=== PATIENT | male | born 1960 | race Caucasian/White ===

== ENCOUNTER 2017-05-15 08:33 | Day surgery (SDC) | payer OTHER ==
[~2017-05-15] VITALS: Ht 166.4 cm; Wt 107.0 kg
[~2017-05-15 08:33] MED LIST: ADVAIR 250/501 DISK IH; ALTACE10 MG PO; ALTACE5 MG PO; AMLOD-VALSA-HC1 EAC4 PO; ASPIRIN81 M2 PO; ATORVASTATIN CA20 MG PO; AUGMENTIN875 MG PO; CARDURA2 M1 PO; CIPRODEX OTIC7.5 ML LEFT EAR; CLONIDINE HCL0.1 MG PO; CLONIDINE HCL0.3 MG PO; CYMBALTA20 MG PO; DAILY VALUE1 EACH PO; DICLOFENAC POTA50 MG PO; DIFLUCAN100 MG PO; DULCOLAX5 MG PO; DULOXETINE HCL20 MG PO; FLEXERIL10 MG PO; GABAPENTIN300 MG PO; GLUCOPHAGE1000 MG PO; HYDRALAZINE HCL10 MG PO; HYDRALAZINE HCL25 MG PO; HYDROCHLOROTHIA25 MG PO; KADIAN30 MG PO; LANTUS 10100 UNITS/ SC; LASIX40 MG PO; LIDOCAINE-HYDROC7 GM PR; LIPITOR20 MG PO; NEURONTIN300 MG PO; NORCO 7.5/321 TABLET PO; NORVASC10 MG PO; NORVASC5 MG PO; NOVOLIN 70100 UNIT/1 SQ; NOVOLIN,HU100 UNITS/ SC; NOVOLOG 10100 UNITS/ SC; OMEGA 3-6-9 CO1 EACH PO; OMEGA-31000 M1 PO; OXAPROZIN600 MG PO; OXYCODONE HCL15 MG PO; PANTOPRAZOLE SO40 MG PO; PROAIR HFA8.5 GM IH; PROTONIX40 MG PO; STOOL SOFTENER100 MG PO; TOPROL XL100 MG PO; TRULICITY0.75 MG/0. SC; ULTRAM50 MG PO; VIBRAMYCIN100 MG PO; VITAMIN B-125000 MC1 PO; VITAMIN B-6100 MG PO; VITAMIN B12 PO; ZEMAIRA IV; ZOCOR40 MG PO; ZOFRAN ODT4 MG PO
== END 2017-05-15 14:01 | disposition short-term general hospital (02) ==
LOC: CATH 08:33 → ENRESERV 11:24 → CANRESERV 11:24 → 2SOUTH 11:26
PROVIDERS: Internal Medicine Cardiovascular Disease
DX: I25.119 Atherosclerotic heart disease of native coronary artery with unspecified angina pectoris (principal); E78.5 Hyperlipidemia, unspecified; I11.9 Hypertensive heart disease without heart failure; E11.51 Type 2 diabetes mellitus with diabetic peripheral angiopathy without gangrene; J44.9 Chronic obstructive pulmonary disease, unspecified; Z79.4 Long term (current) use of insulin; Z79.82 Long term (current) use of aspirin; F17.210 Nicotine dependence, cigarettes, uncomplicated
CPT/HCPCS: 82948; C1769; C1887; G0378; J1644; J2250; J3010

== ENCOUNTER 2017-06-23 13:23 | Inpatient (IN) | payer OTHER ==
[~2017-06-23] VITALS: Ht 165.1 cm; Wt 107.4 kg
[~2017-06-23 13:23] MED LIST changes: -ATORVASTATIN CA20 MG PO; +COLACE100 MG PO; -GABAPENTIN300 MG PO; +LIPITOR40 MG PO; -STOOL SOFTENER100 MG PO; -VITAMIN B-6100 MG PO; +VITAMIN B-650 M1 PO
[2017-06-23 14:45] LABS: HEMATOCRIT 29.2 % (38.0-50.0); HEMOGLOBIN 9.5 G/DL (12.5-16.6); MCH 30.2 PG (29.0-34.0); MCHC 32.5 G/DL (30.0-36.0); MCV 92.7 FL (86-99); PLATELET COUNT 239 K/uL (156-360); RBC DIS.WIDTH-CV 14.4 % (11.8-14.6); RBC DIS.WIDTH-SD 48.8 % (39-53); RED BLOOD COUNT 3.15 M/uL (4.00-5.50); WHITE BLOOD COUNT 7.4 K/uL (4.1-10.2)
[2017-06-23 14:59] LABS: CHLORIDE 99 mEq/L (99-109); POTASSIUM 4.2 mEq/L (3.7-5.4); SODIUM 135 mEq/L (136-147)
[2017-06-23 15:03] LABS: GLUCOSE 125 mg/dL (70-99)
[2017-06-23 15:04] LABS: GFR ESTIMATE (CALCULATED) > 59 mL/min/ (58.99-99999)
[2017-06-23 15:05] LABS: UREA NITROGEN (BUN) 17 mg/dL (9-23)
[2017-06-23 15:07] LABS: TROP-I INTERPRETATION NEGATIVE; TROPONIN-I < 0.01 ng/mL (0.0-0.30)
[2017-06-23 17:20] LABS: TYPE OF FLUID PLEURAL
[2017-06-23 17:45] LABS: BODY FLUID AMYLASE 25 U/L
[2017-06-23 17:50] LABS: BODY FLUID GLUCOSE 122 MG/DL; BODY FLUID LDH 208 IU/L
[2017-06-23 18:07] LABS: APPEARANCE BLOODY; BODY FLUID EOSINOPHILS 0 % (0-25); BODY FLUID RBC'S 240000 /MM^3 (0-100); BODY FLUID WBC'S 2720 /MM^3 (0-500); MONONUCLEAR WBC'S 42 %; POLYNUCLEAR WBC'S 58 % (0-25)
[2017-06-23] MEDS ORDERED: K-DUR20 MEQ PO (18:23)
[2017-06-23] MEDS ORDERED: VITAMIN D2000 UNI1 PO (18:23)
[2017-06-23] MEDS ORDERED: LIPITOR40 MG PO (18:25)
[2017-06-23] MEDS ORDERED: CORDARONE200 MG PO (18:25)
[2017-06-23] MEDS ORDERED: PRINIVIL10 MG PO (18:26)
[2017-06-23] MEDS ORDERED: PLAVIX75 MG PO (18:26)
[2017-06-23] MEDS ORDERED: LOPRESSOR50 MG PO (18:26)
[2017-06-23] MEDS ORDERED: THERAPEUTIC M PO (18:27)
[2017-06-23 20:44] VITALS: BP 156/69
[2017-06-23 21:32] LABS: TROP-I INTERPRETATION NEGATIVE; TROPONIN-I < 0.01 ng/mL (0.0-0.30)
[2017-06-23 21:44] LABS: APPEARANCE SL.HAZY ((CLEAR)); BILIRUBIN NEGATIVE; BLOOD NEGATIVE; COLOR YELLOW ((YELLOW)); GLUCOSE (STRIP) NEGATIVE; KETONES NEGATIVE; LEUKOCYTES NEGATIVE; NITRITE NEGATIVE; PROTEIN (STRIP) 30; SPECIFIC GRAVITY 1.014 (1.000-1.030)
[2017-06-23 21:53] LABS: BACTERIA NONE SEEN /HPF; EPITHELIAL CELLS RARE /HPF; HYALINE CASTS 0-5 /LPF; MUCUS 2+ /LPF; RED BLOOD CELLS 20-30 /HPF (0-5); UCUL ADDED? NO; WHITE BLOOD CELLS NONE SEEN /HPF (0-5)
[2017-06-23 23:33] VITALS: BP 148/69
[2017-06-24 02:41] LABS: HEMATOCRIT 27.4 % (38.0-50.0); HEMOGLOBIN 9.1 G/DL (12.5-16.6); MCH 30.1 PG (29.0-34.0); MCHC 33.2 G/DL (30.0-36.0); MCV 90.7 FL (86-99); PLATELET COUNT 244 K/uL (156-360); RBC DIS.WIDTH-CV 14.3 % (11.8-14.6); RBC DIS.WIDTH-SD 47.7 % (39-53); RED BLOOD COUNT 3.02 M/uL (4.00-5.50)
[2017-06-24 02:56] LABS: CHLORIDE 99 mEq/L (99-109); POTASSIUM 3.9 mEq/L (3.7-5.4); SODIUM 139 mEq/L (136-147)
[2017-06-24 02:57] LABS: GLUCOSE 134 mg/dL (70-99)
[2017-06-24 03:01] LABS: GFR ESTIMATE (CALCULATED) > 59 mL/min/ (58.99-99999)
[2017-06-24 03:02] LABS: TROP-I INTERPRETATION NEGATIVE; TROPONIN-I < 0.01 ng/mL (0.0-0.30); UREA NITROGEN (BUN) 17 mg/dL (9-23)
[2017-06-24 04:05] VITALS: BP 158/68
[2017-06-24 07:59] VITALS: BP 134/63
[2017-06-24 11:09] VITALS: BP 97/51
[2017-06-24 16:00] VITALS: BP 117/58
[2017-06-24 19:39] VITALS: BP 133/60
[2017-06-24 23:50] VITALS: BP 133/63
[2017-06-25] VITALS (7 sets, daily range): BP systolic 98–146; BP diastolic 50–66
[2017-06-25 06:56] LABS: BASOPHIL (%) 1.1 % (0-1); BASOPHIL COUNT 0.1 K/uL (0-0.1); EOSINOPHIL COUNT 0.2 K/uL (0-0.3); HEMATOCRIT 25.8 % (38.0-50.0); HEMOGLOBIN 8.4 G/DL (12.5-16.6); IMMATURE GRANULOCYTE (%) 0.5 % (0.0-0.7); LYMPHOCYTE COUNT 1.5 K/uL (1.0-2.8); MCH 30.1 PG (29.0-34.0); MCHC 32.6 G/DL (30.0-36.0); MCV 92.5 FL (86-99); MONOCYTE (%) 12.9 % (3-12); MONOCYTE COUNT 0.9 K/uL (0-0.8); NEUTROPHIL (%) 60.5 % (45-76); PLATELET COUNT 244 K/uL (156-360); RBC DIS.WIDTH-CV 14.6 % (11.8-14.6); RBC DIS.WIDTH-SD 49.1 % (39-53); RED BLOOD COUNT 2.79 M/uL (4.00-5.50); WHITE BLOOD COUNT 6.6 K/uL (4.1-10.2)
[2017-06-25 07:25] LABS: CHLORIDE 97 MEQ/L (99-109); CREATININE 1.2 MG/DL (0.6-1.3); GFR ESTIMATE (CALCULATED) > 59 mL/min/ (58.99-99999); SODIUM 138 MEQ/L (136-147); UREA NITROGEN (BUN) 24 mg/dL (9-23)
[2017-06-25 07:29] LABS: GLUCOSE 56 mg/dL (70-99)
[2017-06-26 03:57] VITALS: BP 144/67
[2017-06-26 06:12] LABS: BASOPHIL (%) 0.8 % (0-1); BASOPHIL COUNT 0.1 K/uL (0-0.1); EOSINOPHIL (%) 2.4 % (0-5); EOSINOPHIL COUNT 0.2 K/uL (0-0.3); HEMATOCRIT 25.7 % (38.0-50.0); HEMOGLOBIN 8.3 G/DL (12.5-16.6); IMMATURE GRANULOCYTE (%) 0.4 % (0.0-0.7); LYMPHOCYTE (%) 18.6 % (15-42); LYMPHOCYTE COUNT 1.5 K/uL (1.0-2.8); MCH 29.4 PG (29.0-34.0); MCHC 32.3 G/DL (30.0-36.0); MCV 91.1 FL (86-99); MONOCYTE (%) 11.4 % (3-12); MONOCYTE COUNT 0.9 K/uL (0-0.8); NEUTROPHIL (%) 66.4 % (45-76); NEUTROPHIL COUNT 5.2 K/uL (1.8-6.4); PLATELET COUNT 263 K/uL (156-360); RBC DIS.WIDTH-CV 14.5 % (11.8-14.6); RBC DIS.WIDTH-SD 48.3 % (39-53); RED BLOOD COUNT 2.82 M/uL (4.00-5.50); WHITE BLOOD COUNT 7.9 K/uL (4.1-10.2)
[2017-06-26 06:33] LABS: CHLORIDE 96 MEQ/L (99-109); CREATININE 1.2 MG/DL (0.6-1.3); GFR ESTIMATE (CALCULATED) > 59 mL/min/ (58.99-99999); GLUCOSE 59 mg/dL (70-99); POTASSIUM 4.1 MEQ/L (3.7-5.4); SODIUM 138 MEQ/L (136-147); UREA NITROGEN (BUN) 24 mg/dL (9-23)
[2017-06-26 07:00] VITALS: BP 104/53
[2017-06-26 11:19] VITALS: BP 118/64
[2017-06-26 15:12] VITALS: BP 104/56
[2017-06-26 20:00] VITALS: BP 128/61
[2017-06-27] VITALS (7 sets, daily range): BP systolic 110–155; BP diastolic 54–72
[2017-06-27 06:21] LABS: HEMATOCRIT 25.8 % (38.0-50.0); HEMOGLOBIN 8.6 G/DL (12.5-16.6); MCH 30.2 PG (29.0-34.0); MCHC 33.3 G/DL (30.0-36.0); MCV 90.5 FL (86-99); PLATELET COUNT 247 K/uL (156-360); RBC DIS.WIDTH-CV 14.4 % (11.8-14.6); RBC DIS.WIDTH-SD 47.5 % (39-53); RED BLOOD COUNT 2.85 M/uL (4.00-5.50); WHITE BLOOD COUNT 7.1 K/uL (4.1-10.2)
[2017-06-27 06:48] LABS: CHLORIDE 96 MEQ/L (99-109); GFR ESTIMATE (CALCULATED) > 59 mL/min/ (58.99-99999); POTASSIUM 3.9 MEQ/L (3.7-5.4); SODIUM 134 MEQ/L (136-147); UREA NITROGEN (BUN) 23 mg/dL (9-23)
[2017-06-27 06:51] LABS: GLUCOSE 172 mg/dL (70-99)
[2017-06-27 07:00] LABS: ANISOCYTOSIS 1+; BASOPHIL (%) 0.7 % (0-1); BASOPHIL COUNT 0.1 K/uL (0-0.1); EOSINOPHIL (%) 2.3 % (0-5); EOSINOPHIL COUNT 0.2 K/uL (0-0.3); IMMATURE GRANULOCYTE (%) 0.3 % (0.0-0.7); LYMPHOCYTE COUNT 1.3 K/uL (1.0-2.8); MICROCYTOSIS 1+; MONOCYTE (%) 11.5 % (3-12); MONOCYTE COUNT 0.8 K/uL (0-0.8); NEUTROPHIL (%) 67.2 % (45-76); NEUTROPHIL COUNT 4.8 K/uL (1.8-6.4); POLYCHROMASIA 1+
[2017-06-28 04:08] VITALS: BP 133/60
[2017-06-28 06:08] LABS: BASOPHIL (%) 1.1 % (0-1); BASOPHIL COUNT 0.1 K/uL (0-0.1); EOSINOPHIL (%) 2.7 % (0-5); EOSINOPHIL COUNT 0.2 K/uL (0-0.3); HEMATOCRIT 26.7 % (38.0-50.0); HEMOGLOBIN 8.6 G/DL (12.5-16.6); IMMATURE GRANULOCYTE (%) 0.5 % (0.0-0.7); LYMPHOCYTE (%) 19.3 % (15-42); LYMPHOCYTE COUNT 1.2 K/uL (1.0-2.8); MCH 29.1 PG (29.0-34.0); MCHC 32.2 G/DL (30.0-36.0); MCV 90.2 FL (86-99); MONOCYTE (%) 10.5 % (3-12); MONOCYTE COUNT 0.7 K/uL (0-0.8); NEUTROPHIL (%) 65.9 % (45-76); NEUTROPHIL COUNT 4.2 K/uL (1.8-6.4); PLATELET COUNT 261 K/uL (156-360); RBC DIS.WIDTH-CV 14.3 % (11.8-14.6); RED BLOOD COUNT 2.96 M/uL (4.00-5.50); WHITE BLOOD COUNT 6.4 K/uL (4.1-10.2)
[2017-06-28 06:34] LABS: ALBUMIN 2.9 G/DL (3.2-4.8); ALKALINE PHOSPHATASE 80 IU/L (3-129); ALT (GPT) 15 IU/L (3-49); AST (GOT) 12 IU/L (2-34); CHLORIDE 97 MEQ/L (99-109); GFR ESTIMATE (CALCULATED) > 59 mL/min/ (58.99-99999); GLUCOSE 201 mg/dL (70-99); LACTATE DEHYDROGENASE 149 IU/L (20-246); POTASSIUM 4.5 MEQ/L (3.7-5.4); SODIUM 134 MEQ/L (136-147); TOTAL PROTEIN 5.7 G/DL (6.4-8.3); UREA NITROGEN (BUN) 22 mg/dL (9-23)
[2017-06-28 06:35] LABS: TOTAL BILIRUBIN 0.3 MG/DL (0.0-1.0)
[2017-06-28 07:13] LABS: IRON 36 MCG/DL (35-150); TRANSFERRIN (TIBC) 196.1 mg/dL (215-380); TRANSFERRIN SATUR. 18 % (20-55)
[2017-06-28 07:42] VITALS: BP 128/60
[2017-06-28 08:21] LABS: FERRITIN 99 NG/ML (22-322)
[2017-06-28 08:36] LABS: THYROTROPIN (TSH) 5.1 MIU/L (0.4-5.5)
[2017-06-28 09:02] LABS: FOLIC ACID (FOLATE) > 22.0 NG/ML (5.0-22.0)
[2017-06-28 11:31] LABS: INTER. NORMALIZED RATIO 1.3
[2017-06-28 11:34] LABS: PTT 33.7 SEC (25-37)
[2017-06-28 20:05] VITALS: BP 134/63
[2017-06-28 21:15] LABS: STOOL OCCULT BLD 1ST SPECIMEN NEGATIVE
[2017-06-29] VITALS: BP 161/70
[2017-06-29 04:00] VITALS: BP 143/63
[2017-06-29 06:25] LABS: BASOPHIL (%) 0.9 % (0-1); BASOPHIL COUNT 0.1 K/uL (0-0.1); EOSINOPHIL (%) 2.4 % (0-5); EOSINOPHIL COUNT 0.2 K/uL (0-0.3); HEMATOCRIT 27.1 % (38.0-50.0); HEMOGLOBIN 8.8 G/DL (12.5-16.6); IMMATURE GRANULOCYTE (%) 0.8 % (0.0-0.7); LYMPHOCYTE (%) 18.7 % (15-42); LYMPHOCYTE COUNT 1.5 K/uL (1.0-2.8); MCH 29.2 PG (29.0-34.0); MCHC 32.5 G/DL (30.0-36.0); MONOCYTE COUNT 0.9 K/uL (0-0.8); NEUTROPHIL (%) 66.2 % (45-76); NEUTROPHIL COUNT 5.2 K/uL (1.8-6.4); PLATELET COUNT 270 K/uL (156-360); RBC DIS.WIDTH-CV 14.4 % (11.8-14.6); RBC DIS.WIDTH-SD 46.6 % (39-53); RED BLOOD COUNT 3.01 M/uL (4.00-5.50); WHITE BLOOD COUNT 7.8 K/uL (4.1-10.2)
[2017-06-29 06:48] LABS: ALBUMIN 2.8 G/DL (3.2-4.8); ALKALINE PHOSPHATASE 76 IU/L (3-129); ALT (GPT) 15 IU/L (3-49); AST (GOT) 13 IU/L (2-34); CHLORIDE 96 MEQ/L (99-109); GFR ESTIMATE (CALCULATED) > 59 mL/min/ (58.99-99999); GLUCOSE 232 mg/dL (70-99); POTASSIUM 4.8 MEQ/L (3.7-5.4); SODIUM 132 MEQ/L (136-147); TOTAL BILIRUBIN 0.3 MG/DL (0.0-1.0); TOTAL PROTEIN 5.6 G/DL (6.4-8.3); UREA NITROGEN (BUN) 20 mg/dL (9-23)
[2017-06-29 16:11] VITALS: BP 116/68
[2017-06-29 19:57] VITALS: BP 119/59
[2017-06-30] VITALS: BP 131/60
[2017-06-30 04:00] VITALS: BP 122/58
[2017-06-30 06:31] LABS: BASOPHIL (%) 1.2 % (0-1); BASOPHIL COUNT 0.1 K/uL (0-0.1); EOSINOPHIL (%) 2.6 % (0-5); EOSINOPHIL COUNT 0.2 K/uL (0-0.3); HEMATOCRIT 27.2 % (38.0-50.0); HEMOGLOBIN 8.9 G/DL (12.5-16.6); IMMATURE GRANULOCYTE (%) 1.2 % (0.0-0.7); LYMPHOCYTE (%) 16.7 % (15-42); LYMPHOCYTE COUNT 1.3 K/uL (1.0-2.8); MCH 29.8 PG (29.0-34.0); MCHC 32.7 G/DL (30.0-36.0); MONOCYTE (%) 10.8 % (3-12); MONOCYTE COUNT 0.8 K/uL (0-0.8); NEUTROPHIL (%) 67.5 % (45-76); NEUTROPHIL COUNT 5.2 K/uL (1.8-6.4); PLATELET COUNT 242 K/uL (156-360); RBC DIS.WIDTH-CV 14.6 % (11.8-14.6); RBC DIS.WIDTH-SD 47.8 % (39-53); RED BLOOD COUNT 2.99 M/uL (4.00-5.50); WHITE BLOOD COUNT 7.7 K/uL (4.1-10.2)
[2017-06-30 06:57] LABS: ALBUMIN 2.8 G/DL (3.2-4.8); ALKALINE PHOSPHATASE 72 IU/L (3-129); ALT (GPT) 16 IU/L (3-49); AST (GOT) 14 IU/L (2-34); CHLORIDE 95 MEQ/L (99-109); GFR ESTIMATE (CALCULATED) > 59 mL/min/ (58.99-99999); GLUCOSE 144 mg/dL (70-99); POTASSIUM 4.6 MEQ/L (3.7-5.4); SODIUM 135 MEQ/L (136-147); TOTAL BILIRUBIN 0.3 MG/DL (0.0-1.0); TOTAL PROTEIN 5.7 G/DL (6.4-8.3); UREA NITROGEN (BUN) 17 mg/dL (9-23)
[2017-06-30 08:02] VITALS: BP 124/60
[2017-06-30 12:00] VITALS: BP 148/72
[2017-06-30 16:31] VITALS: BP 152/88
[2017-06-30 20:00] VITALS: BP 150/62
[2017-07-01] VITALS: BP 158/70
[2017-07-01 04:13] VITALS: BP 157/68
[2017-07-01 07:15] LABS: BASOPHIL (%) 1.2 % (0-1); BASOPHIL COUNT 0.1 K/uL (0-0.1); EOSINOPHIL (%) 2.8 % (0-5); EOSINOPHIL COUNT 0.2 K/uL (0-0.3); HEMATOCRIT 27.8 % (38.0-50.0); HEMOGLOBIN 9.2 G/DL (12.5-16.6); IMMATURE GRANULOCYTE (%) 1.3 % (0.0-0.7); LYMPHOCYTE (%) 16.7 % (15-42); LYMPHOCYTE COUNT 1.3 K/uL (1.0-2.8); MCH 29.9 PG (29.0-34.0); MCHC 33.1 G/DL (30.0-36.0); MCV 90.3 FL (86-99); MONOCYTE (%) 11.7 % (3-12); MONOCYTE COUNT 0.9 K/uL (0-0.8); NEUTROPHIL (%) 66.3 % (45-76); PLATELET COUNT 273 K/uL (156-360); RBC DIS.WIDTH-CV 14.8 % (11.8-14.6); RBC DIS.WIDTH-SD 48.2 % (39-53); RED BLOOD COUNT 3.08 M/uL (4.00-5.50); WHITE BLOOD COUNT 7.5 K/uL (4.1-10.2)
[2017-07-01 07:35] VITALS: BP 156/70
[2017-07-01 07:48] LABS: ALBUMIN 2.9 G/DL (3.2-4.8); ALKALINE PHOSPHATASE 83 IU/L (3-129); ALT (GPT) 15 IU/L (3-49); AST (GOT) 13 IU/L (2-34); CHLORIDE 98 MEQ/L (99-109); GFR ESTIMATE (CALCULATED) > 59 mL/min/ (58.99-99999); GLUCOSE 157 mg/dL (70-99); POTASSIUM 4.1 MEQ/L (3.7-5.4); SODIUM 135 MEQ/L (136-147); TOTAL BILIRUBIN 0.3 MG/DL (0.0-1.0); TOTAL PROTEIN 5.7 G/DL (6.4-8.3); UREA NITROGEN (BUN) 17 mg/dL (9-23)
[2017-07-01] MEDS ORDERED: POLYETHYLENE GL17 GM PO (14:10)
[2017-07-01] MEDS ORDERED: SENNA LAX8.6 MG PO (14:11)
[2017-07-01] MEDS ORDERED: DOXYCYCLINE HY100 M3 PO (14:14)
[2017-07-01] MEDS ORDERED: LOPRESSOR25 MG PO (14:14)
[2017-07-01] MEDS ORDERED: LISINOPRIL20 MG PO (14:19)
== END 2017-07-01 15:39 | disposition home health service (06) | DRG 291 ==
LOC: EME 13:23 → EDOF 18:13 → 5SOUTH 18:13 → ENRESERV 18:14 → 5SOUTH 20:31 → ENPENDDIS 07-01 14:32 → 5SOUTH 07-01 15:39
PROVIDERS: Anesthesiology; Emergency Medicine; Hospitalist; Internal Medicine Cardiovascular Disease; Student in an Organized Health Care Education/Training Program
PROC: 0W9B3ZZ Drainage of Left Pleural Cavity, Percutaneous Approach (ICD-10-PCS; principal; 2017-06-23)
PROC: 0W9B3ZZ Drainage of Left Pleural Cavity, Percutaneous Approach (ICD-10-PCS; 2017-06-28)
DX: I13.0 Hypertensive heart and chronic kidney disease with heart failure and stage 1 through stage 4 chronic kidney disease, or unspecified chronic kidney disease (principal); I50.31 Acute diastolic (congestive) heart failure; J90 Pleural effusion, not elsewhere classified; T81.89XA Other complications of procedures, not elsewhere classified, initial encounter; T81.4XXA Infection following a procedure, initial encounter; Y83.2 Surgical operation with anastomosis, bypass or graft as the cause of abnormal reaction of the patient, or of later complication, without mention of misadventure at the time of the procedure; L02.214 Cutaneous abscess of groin; L03.314 Cellulitis of groin; B95.62 Methicillin resistant Staphylococcus aureus infection as the cause of diseases classified elsewhere; D62 Acute posthemorrhagic anemia; E11.22 Type 2 diabetes mellitus with diabetic chronic kidney disease; N18.2 Chronic kidney disease, stage 2 (mild); E78.5 Hyperlipidemia, unspecified; J44.9 Chronic obstructive pulmonary disease, unspecified; E11.51 Type 2 diabetes mellitus with diabetic peripheral angiopathy without gangrene; E11.649 Type 2 diabetes mellitus with hypoglycemia without coma; E88.01 Alpha-1-antitrypsin deficiency; G47.33 Obstructive sleep apnea (adult) (pediatric); G89.29 Other chronic pain; M54.9 Dorsalgia, unspecified; I25.10 Atherosclerotic heart disease of native coronary artery without angina pectoris; J98.11 Atelectasis; K59.03 Drug induced constipation; T40.2X5A Adverse effect of other opioids, initial encounter; R00.1 Bradycardia, unspecified; E66.01 Morbid (severe) obesity due to excess calories; Z68.41 Body mass index [BMI] 40.0-44.9, adult; Z79.4 Long term (current) use of insulin; Z95.1 Presence of aortocoronary bypass graft; Z79.82 Long term (current) use of aspirin; Z79.891 Long term (current) use of opiate analgesic; Z88.2 Allergy status to sulfonamides; Z87.891 Personal history of nicotine dependence
CPT/HCPCS: 36415; 71046; 71250; 76942; 80048; 80053; 80061; 80202; 81003; 82043; 82150 91; 82272; 82570; 82607; 82728; 82746; 82945; 82948; 83036; 83540; 83615; 83615 91; 83880; 84157; 84443; 84466; 84484; 85025; 85027; 85610; 85730; 87040; 87070; 87075; 87076; 87077; 87147; 87185; 87186; 87205; 88108; 88305; 89051; 93005; 93306; 93970; 94640; 94640 76; 94760; 99202; 99281; 99285; J1650; J1756; J1815; J1940; J3370; J7050

== ENCOUNTER → 2017-07-06 | Outpatient (CLI) | payer OTHER ==
[~2017-07-06] MED LIST changes: +CORDARONE200 MG PO; +DOXYCYCLINE HY100 M3 PO; +K-DUR20 MEQ PO; +LISINOPRIL20 MG PO; +LOPRESSOR25 MG PO; +LOPRESSOR50 MG PO; +PLAVIX75 MG PO; +POLYETHYLENE GL17 GM PO; +PRINIVIL10 MG PO; +SENNA LAX8.6 MG PO; +THERAPEUTIC M PO; +VITAMIN D2000 UNI1 PO
== END | disposition home or self-care (01) ==
DX: R13.10 Dysphagia, unspecified (principal); K21.9 Gastro-esophageal reflux disease without esophagitis; J44.9 Chronic obstructive pulmonary disease, unspecified
CPT/HCPCS: 92611 GN; G8996 GN; G8997 GN; G8998 GN